=== PATIENT | male | born 1995 | race Caucasian/White ===

== ENCOUNTER 2016-10-21 09:17 | Inpatient (IN) | payer OTHER ==
[2016-10-21 10:02] VITALS: BMI 17.6
--- NOTE | 2016-10-21 13:54 | HP ---
Admission [facility] Chief Complaint: "I'm here because I want to get better and be clean and live a clean lifestyle. " Pt. is here for Rehab for Marijuana. Allergies/Adverse Reactions: Allergies Allergy/AdvReac Type Severity Reaction Status Date / Time hazelnut Allergy Itching Verified 10/21/16 11:02 History of Present Illness: Pt. is a 21 YO male here for Rehab for Marijuana use. Pt. has been to Detox at [facility] in 02/2016. Pt. is currently a client at [facility] OTP Methadone Program (80 mg daily, last dose taken: Today). Exam Limitations: No Limitations - Ebola screening Have you traveled outside of the country in the last 21 days: No Have you had contact with anyone from an Ebola affected area: No Have you been sick,other than usual withdrawal symptoms: No Do you have a fever: No - Review of Systems Constitutional: Chills, Diaphoresis, Fever, Loss of Appetite, Malaise, Night Sweats, Changes in sleep EENT: reports: Dental Problems (Couple of cracked fillings. Pt. reports that he is still okay to eat a regular diet.) Respiratory: reports: Productive cough Cardiac: reports: No Symptoms Reported GI: reports: Constipated : reports: No Symptoms Reported Musculoskeletal: reports: Back Pain (2 Herniated discs in lower back area.), Joint Stiffness (Right shoulder / upper back -intermittent, due to previous injury (12/2012).), Other (Occasional muscle spasms in ranom part of body. Last briefly when they do occur and then resolve on their own.) Integumentary: reports: No Symptoms Reported Neuro: reports: Numbness (Occasional in toes of left foot.), Tingling ( Occasional in toes of left foot.), Tremors Endocrine: reports: No Symptoms Reported Hematology: reports: No Symptoms Reported Psychiatric: reports: Judgement Intact, Mood/Affect Appropiate, Orientated x3, Anxious, Depressed (Takes medication.) Other Systems: Reviewed and Negative Patient History - Patient Medical History Hx Anemia: No Hx Asthma: Yes (ON ALBUTEROL INHALER) Hx Chronic Obstructive Pulmonary Disease (COPD): Yes (Bronchitis due to Mold infection, Treated, 2013.) Hx Cancer: No Hx Cardiac Disorders: No Hx Congestive Heart Failure: No Hx Hypertension: No Hx Hypercholesterolemia: No Hx Pacemaker: No HX Cerebrovascular Accident: No Hx Seizures: No Hx Dementia: No Hx Diabetes: No Hx Gastrointestinal Disorders: No Hx Liver Disease: No Hx Genitourinary Disorders: No Hx Sexually Transmitted Disorders: No Hx Renal Disease (ESRD): No Hx Thyroid Disease: No Hx Human Immunodeficiency Virus (HIV): No (Last tested: 2015: NEGATIVE.) Hx Hepatitis C: No (Last tested: 2015: NEGATIVE.) Hx Depression: Yes (On Meds.) Hx Suicide Attempt: Yes (2014. PATIENT DENIES CURRENT SI / HI.) Hx Bipolar Disorder: No Hx Schizophrenia: No Other Medical History: ADJUSTMENT DISORDER, ANXIETY. - Patient Surgical History Past Surgical History: No Hx Neurologic Surgery: No Hx Cataract Extraction: No Hx Cardiac Surgery: No Hx Lung Surgery: No Hx Breast Surgery: No Hx Breast Biopsy: No Hx Abdominal Surgery: No Hx Appendectomy: No Hx Cholecystectomy: No Hx Genitourinary Surgery: No Hx Section: No Hx Orthopedic Surgery: No Anesthesia Reaction: No - PPD History Previous Implant?: Yes Documented Results: Negative w/o proof Implanted On Prior [facility] Admission?: Yes Date: 02/18/16 PPD to be Administered?: Yes - Reproductive History Patient is a Female of Child Bearing Age (11 -55 yrs old): No (PATIENT IS MALE.) - Smoking Cessation Smoking history: Never smoked Have you smoked in the past 12 months: No Cigars Per Day: 0 Hx Chewing Tobacco Use: No Initiated information on smoking cessation: No - Substance & Tx. History Hx Alcohol Use: Yes Hx Substance Use: Yes Substance Use Type: Heroin, Marijuana, Opiates (Methadone Maintenance.) Hx Substance Use Treatment: Yes (Previous Detox admission at [facility].) - Substances Abused Marijuana/Hashish Route: Smoking Frequency: Daily Amount used: 0.25 - 0.5 Grams Age of first use: 11 Date of Last Use: 10/20/16 Heroin Route: Inhalation Frequency: 1-2 times per week Amount used: 2 Bags. Age of first use: 18 Date of Last Use: 10/20/16 Family Disease History - Family Disease History Family Disease History: CA: Grandparent (Stomach, .), Father (Thyroid.) , Respiratory: Grandparent Admission Physical Exam BHS - Vital Signs Vital Signs: Vital Signs - 24 hr 10/21/16 10:00 Temperature 98.5 F Pulse Rate 132 H Respiratory 20 Rate Blood Pressure 122/81 - Physical General Appearance: Yes: No Apparent Distress, Appropriately Dressed, Thin, Anxious HEENTM: Yes: Hearing grossly Normal, Normocephalic, Normal Voice, ANUP, Pharynx Normal Respiratory: Yes: Chest Non-Tender, No Respiratory Distress, Wheezing Neck: Yes: No masses,lesions,Nodules, Supple, Trachea in good position Breast: Yes: Breast Exam Deferred Cardiology: Yes: S1, S2, Irregular Abdominal: Yes: Normal Bowel Sounds, Non Tender, Flat, Soft Genitourinary: Yes: Within Normal Limits Back: Yes: Decreased Range of Motion, Vertebral Tenderness Musculoskeletal: Yes: Gait Steady, Back pain, Joint Stiffness Extremities: Yes: Tremors Neurological: Yes: Fully Oriented, Alert, Normal Mood/Affect, Normal Response Integumentary: Yes: Normal Color, Dry, Warm Lymphatic: Yes: Within Normal Limits - Diagnostic (1) Asthma Current Visit: Yes Status: Chronic Qualifiers: Asthma severity: mild intermittent Asthma complication type: uncomplicated Qualified Code(s): J45.20 - Mild intermittent asthma, uncomplicated (2) Cannabis dependence, uncomplicated Current Visit: Yes Status: Chronic (3) Methadone maintenance therapy patient Current Visit: Yes Status: Chronic (4) Opioid dependence on agonist therapy Current Visit: Yes Status: Chronic (5) Anxiety Current Visit: Yes Status: Chronic Cleared for Admission [facility] - Detox or Rehab Claeared for Rehab Admission: Yes [facility] Breath Alcohol Content Breath Alcohol Content: 0 Urine Drug Screen - Results Drug Screen Negative: No Urine Drug Screen Results: THC-Marijuana, THANG-Cocaine, BZO-Benzodiazepines, MTD- Methadone, TCA-Tricyclic Antidepress, OXY-Oxycodone
[2016-10-21] MEDS ORDERED: IBUPROFEN 400 MG TABLET (FP) PO PRN (14:27)
[2016-10-21] MEDS ORDERED: guaiFENesin/D-METHORPHAN HB 10 ML UNIT-DOSE CUPS PO PRN (14:27)
[2016-10-21] MEDS ORDERED: hydrOXYzine PAMOATE 50 MG CAPSULE (FP) PO PRN (14:27)
[2016-10-21] MEDS ORDERED: LOPERAMIDE HCL 2 MG CAPSULE PO PRN (14:27)
[2016-10-21] MEDS ORDERED: MAG HYDROX/AL HYDROX/SIMETH 30 ML UNIT-DOSE CUP PO PRN (14:27)
[2016-10-21] MEDS ORDERED: MAGNESIUM HYDROX 2400MG/30ML ORAL SUSPENSION 30 ML CUP PO PRN (14:27)
[2016-10-21] MEDS ORDERED: MENTHOL/PHENOL 1 EACH UD MM PRN (14:27)
[2016-10-21] MEDS ORDERED: diphenhydrAMINE HCL 50 MG CAPSULE PO PRN (14:27)
[2016-10-21] MEDS ORDERED: MAGNESIUM CITRATE 300 ML BOTTLE PO PRN (14:27)
[2016-10-21] MEDS ORDERED: P-EPHED 60MG/TRIPROLIDI 2.5MG TABLET PO PRN (14:27)
[2016-10-21] MEDS ORDERED: ALBUTEROL SO4 6.7 GM HFA INHALER IH PRN (14:30)
[2016-10-21 16:36] LABS: MCH 26.6 pg (25.7-33.7); MCHC 32.2 g/dl (32.0-35.9); MEAN CELL VOLUME 82.8 fl (80-96); MEAN PLT VOLUME 8.2 fl (7.5-11.1); PLATELET COUNT 434 K/MM3 (134-434); RDW 15.1 % (11.9-15.9); WHITE BLOOD COUNT 16.9 K/mm3 (4.0-10.0)
[2016-10-21 17:04] LABS: ALBUMIN 3.5 g/dl (3.4-5.0); ANION GAP 10 (8-16); BILIRUBIN,TOTAL 0.2 mg/dL (0.2-1.0); CALCIUM 9.7 mg/dL (8.5-10.1); CO2 28 mmol/L (21-32); CREATININE 0.7 mg/dL (0.7-1.3); GLUCOSE,RANDOM 101 mg/dL (74-106); SGOT/AST 12 U/L (15-37); SGPT/ALT 21 U/L (12-78); TOT PROT 8.4 g/dl (6.4-8.2)
[2016-10-21 17:05] LABS: ALK PHOS 109 U/L (45-117)
[2016-10-21 17:52] LABS: URINE APPEARANCE CLEAR; URINE BILIRUBIN NEGATIVE (NEGATIVE); URINE BLOOD NEGATIVE (NEGATIVE); URINE COLOR YELLOW; URINE GLUCOSE (UA) NEGATIVE (NEGATIVE); URINE KETONE NEGATIVE (NEGATIVE); URINE LEUK ESTERASE NEGATIVE (NEGATIVE); URINE NITRITE NEGATIVE (NEGATIVE); URINE PROTEIN NEGATIVE (NEGATIVE); URINE UROBILINOGEN NEGATIVE E.U./dl (0.2-1.0)
[2016-10-21] MEDS: CYCLOBENZAPRINE HCL 10 MG TABLET (FP) PO PRN (17:52)
[2016-10-21] MEDS: THIAMINE HCL 100 MG TABLET (FP) PO SCH (21:21)
[2016-10-21] MEDS ORDERED: ALBUTEROL SO4 2.5/IPRATROPIUM 0.5 INH SOL 3 ML VIAL.NEB. NEB PRN (22:55)
--- NOTE | 2016-10-21 22:59 | PN ---
[facility] Progress Note Note: received nurse call patient has asthma ventolin q4h prn duonab q6h prn wheezing upon admission begin symbicort bid continue rehab
[2016-10-21] MEDS: BUDESONIDE/FORMETEROL FUMARATE 80/4.5 mcg INHALER IH SCH (23:52)
[2016-10-22] MEDS: METHADONE HCL 40 MG DISPERSABLE TABLET PO SCH (07:06)
[2016-10-22] MEDS: PRENATAL VITAMINS W/ FOLIC ACID TABLET (FP) PO SCH (10:09)
[2016-10-22] MEDS: BUDESONIDE/FORMETEROL FUMARATE 80/4.5 mcg INHALER IH SCH ×2 (10:09→21:22)
[2016-10-22] MEDS: CYCLOBENZAPRINE HCL 10 MG TABLET (FP) PO PRN ×2 (10:11→21:23)
[2016-10-22] MEDS ORDERED: INFLUENZA VACCINE 45 MCG/0.5 ML (MDV 16-17) IM ONE (12:00)
--- NOTE | 2016-10-22 14:14 | HP ---
Psychiatrist Admission - Data Date of interview: 10/22/16 Admission source: [facility] Identifying data: This is the first 5N inpatient rehabilitation admission for this 21 year old single white male unmeployed, residing with his mother in [place]. Medical History: Patient reports work related back injury, asthma, on MMTP 90 mg/daily. Psychiatric History: Patient reports was seen by at [facility] to address anxiety and insomnia, he reports started Buspar but had a side-effects ( increased sweating) then Buspar changed to Trazodone 50 mg, reports he has been on meds 3 weeks and feels it's effective. Patient states anxiety runs in his family, (mother and grandmother with anxiety). Physical/Sexual Abuse/Trauma History: Denies history of abuse. Vital Signs: Vital Signs - 24 hr 10/22/16 10/22/16 10/22/16 00:35 03:30 06:57 Temperature 98.0 F Pulse Rate 83 Respiratory 18 18 16 Rate Blood Pressure 114/78 Allergies/Adverse Reactions: Allergies Allergy/AdvReac Type Severity Reaction Status Date / Time hazelnut Allergy Itching Verified 10/21/16 11:02 No Known Drug Allergies Allergy Verified 10/21/16 17:32 Date of last physical exam: 10/21/16 Concur with the findings of this exam: Yes - Substance Abuse/Tx History Hx Alcohol Use: No Hx Substance Use: Yes Substance Use Type: Heroin (10 g=bags in 2 s=days), Marijuana (2-3 times a week) Hx Substance Use Treatment: Yes ([facility]) - Admission Criteria Previous failed treatment: Yes Poor recovery environment: Yes Comorbidities: Yes Lacks judgement: Yes Mental Status Exam - Mental Status Exam Alert and Oriented to: Time, Place, Person Patient Appearance: Well Groomed Mood: Sad, Anxious Affect: Appropriate Patient Behavior: Appropriate, Cooperative Speech Pattern: Appropriate Voice Loudness: Normal Thought Process: Intact, Goal Oriented Thought Disorder: Not Present Hallucinations: Denies Suicidal Ideation: Denies Homicidal Ideation: Denies Insight/Judgement: Fair Sleep: Difficulty falling asleep Appetite: Fair Muscle strength/Tone: Normal Gait/Station: Normal Psychiatric Findings - Problem List ([place] 1, 2,3) (1) Asthma Current Visit: Yes Status: Chronic Qualifiers: Asthma severity: mild intermittent Asthma complication type: uncomplicated Qualified Code(s): J45.20 - Mild intermittent asthma, uncomplicated (2) Cannabis dependence, uncomplicated Current Visit: Yes Status: Chronic (3) Opioid dependence on agonist therapy Current Visit: Yes Status: Chronic (4) PEG (generalized anxiety disorder) Current Visit: Yes Status: Acute - Initial Treatment Plan Initial Treatment Plan: will continue Trazodone, patient made aware of Vistaril PRN for anxiety, will continue to monitor progress.
--- NOTE | 2016-10-22 15:19 | EKG ---
Test Reason : Blood Pressure : / mmHG Vent. Rate : 085 BPM Atrial Rate : 085 BPM P-R Int : 118 ms QRS Dur : 084 ms QT Int : 372 ms P-R-T Axes : 040 055 059 degrees QTc Int : 442 ms SINUS RHYTHM WITH MARKED SINUS ARRHYTHMIA NO PREVIOUS ECGS AVAILABLE Confirmed by ANTONIA MARTINEZ MD ([id number]) on 10/22/2016 3:18:49 PM Referred By: Elo Batista Confirmed By:ANTONIA MARTINEZ MD
[2016-10-22] MEDS: hydrOXYzine PAMOATE 50 MG CAPSULE (FP) PO PRN (16:49)
[2016-10-22] MEDS: THIAMINE HCL 100 MG TABLET (FP) PO SCH (21:23)
[2016-10-22] MEDS: traZODone HCL 50 MG TABLET (FP) PO SCH (21:23)
[2016-10-23] MEDS: METHADONE HCL 40 MG DISPERSABLE TABLET PO SCH (06:33)
[2016-10-23] MEDS: BUDESONIDE/FORMETEROL FUMARATE 80/4.5 mcg INHALER IH SCH ×2 (10:25→21:24)
[2016-10-23] MEDS: PRENATAL VITAMINS W/ FOLIC ACID TABLET (FP) PO SCH (10:25)
[2016-10-23] MEDS: hydrOXYzine PAMOATE 50 MG CAPSULE (FP) PO PRN (10:26)
[2016-10-23] MEDS: CYCLOBENZAPRINE HCL 10 MG TABLET (FP) PO PRN ×2 (10:27→21:25)
[2016-10-23] MEDS: ACETAMINOPHEN 325 MG TABLET (FP) PO PRN (15:55)
[2016-10-23] MEDS: ALBUTEROL SO4 6.7 GM HFA INHALER IH PRN (17:55)
[2016-10-23] MEDS: THIAMINE HCL 100 MG TABLET (FP) PO SCH (21:24)
[2016-10-23] MEDS: traZODone HCL 50 MG TABLET (FP) PO SCH (21:24)
[2016-10-24] MEDS: METHADONE HCL 40 MG DISPERSABLE TABLET PO SCH (06:12)
[2016-10-24] MEDS: PRENATAL VITAMINS W/ FOLIC ACID TABLET (FP) PO SCH (10:17)
[2016-10-24] MEDS: BUDESONIDE/FORMETEROL FUMARATE 80/4.5 mcg INHALER IH SCH ×2 (10:18→21:30)
[2016-10-24] MEDS: CYCLOBENZAPRINE HCL 10 MG TABLET (FP) PO PRN ×2 (10:19→21:30)
[2016-10-24] MEDS: hydrOXYzine PAMOATE 50 MG CAPSULE (FP) PO PRN (10:19)
[2016-10-24] MEDS: traZODone HCL 50 MG TABLET (FP) PO SCH (21:30)
[2016-10-24] MEDS: THIAMINE HCL 100 MG TABLET (FP) PO SCH (21:30)
[2016-10-25] MEDS: METHADONE HCL 40 MG DISPERSABLE TABLET PO SCH (06:11)
[2016-10-25] MEDS: BUDESONIDE/FORMETEROL FUMARATE 80/4.5 mcg INHALER IH SCH ×2 (10:18→21:19)
[2016-10-25] MEDS: PRENATAL VITAMINS W/ FOLIC ACID TABLET (FP) PO SCH (10:18)
[2016-10-25] MEDS: CYCLOBENZAPRINE HCL 10 MG TABLET (FP) PO PRN ×2 (10:19→21:17)
[2016-10-25] MEDS: hydrOXYzine PAMOATE 50 MG CAPSULE (FP) PO PRN ×2 (10:19→14:23)
[2016-10-25] MEDS: THIAMINE HCL 100 MG TABLET (FP) PO SCH (21:17)
[2016-10-25] MEDS: traZODone HCL 50 MG TABLET (FP) PO SCH (21:17)
[2016-10-26] MEDS: METHADONE HCL 40 MG DISPERSABLE TABLET PO SCH (06:02)
[2016-10-26] MEDS: PRENATAL VITAMINS W/ FOLIC ACID TABLET (FP) PO SCH (10:07)
[2016-10-26] MEDS: BUDESONIDE/FORMETEROL FUMARATE 80/4.5 mcg INHALER IH SCH ×2 (10:07→21:25)
[2016-10-26] MEDS: hydrOXYzine PAMOATE 50 MG CAPSULE (FP) PO PRN ×2 (10:09→14:27)
[2016-10-26] MEDS: CYCLOBENZAPRINE HCL 10 MG TABLET (FP) PO PRN ×2 (10:09→21:25)
[2016-10-26] MEDS: THIAMINE HCL 100 MG TABLET (FP) PO SCH (21:24)
[2016-10-26] MEDS: traZODone HCL 50 MG TABLET (FP) PO SCH (21:24)
[2016-10-27] MEDS: METHADONE HCL 40 MG DISPERSABLE TABLET PO SCH (06:24)
[2016-10-27] MEDS: hydrOXYzine PAMOATE 50 MG CAPSULE (FP) PO PRN ×2 (09:22→14:14)
[2016-10-27] MEDS: BUDESONIDE/FORMETEROL FUMARATE 80/4.5 mcg INHALER IH SCH ×2 (09:22→21:28)
[2016-10-27] MEDS: PRENATAL VITAMINS W/ FOLIC ACID TABLET (FP) PO SCH (09:22)
[2016-10-27] MEDS: CYCLOBENZAPRINE HCL 10 MG TABLET (FP) PO PRN ×2 (14:14→21:27)
[2016-10-27 14:29] LABS: BASOPHIL 0.9 % (0-2.0); EOSINOPHIL 11.5 % (0-4.5); MCH 26.3 pg (25.7-33.7); MCHC 31.4 g/dl (32.0-35.9); MEAN CELL VOLUME 83.8 fl (80-96); MEAN PLT VOLUME 8.3 fl (7.5-11.1); NEUTROPHILS 60.4 % (42.8-82.8); PLATELET COUNT 322 K/MM3 (134-434); RDW 15.2 % (11.9-15.9); WHITE BLOOD COUNT 11.6 K/mm3 (4.0-10.0)
[2016-10-27] MEDS: ALBUTEROL SO4 6.7 GM HFA INHALER IH PRN (20:13)
[2016-10-27] MEDS: THIAMINE HCL 100 MG TABLET (FP) PO SCH (21:27)
[2016-10-27] MEDS: traZODone HCL 50 MG TABLET (FP) PO SCH (21:27)
[2016-10-28] MEDS: METHADONE HCL 40 MG DISPERSABLE TABLET PO SCH (06:07)
[2016-10-28] MEDS: PRENATAL VITAMINS W/ FOLIC ACID TABLET (FP) PO SCH (10:12)
[2016-10-28] MEDS: BUDESONIDE/FORMETEROL FUMARATE 80/4.5 mcg INHALER IH SCH ×2 (10:12→21:29)
[2016-10-28] MEDS: CYCLOBENZAPRINE HCL 10 MG TABLET (FP) PO PRN ×2 (10:13→21:29)
[2016-10-28] MEDS: hydrOXYzine PAMOATE 50 MG CAPSULE (FP) PO PRN ×2 (10:13→19:06)
[2016-10-28] MEDS: THIAMINE HCL 100 MG TABLET (FP) PO SCH (21:29)
[2016-10-28] MEDS: traZODone HCL 50 MG TABLET (FP) PO SCH (21:29)
[2016-10-29] MEDS: METHADONE HCL 40 MG DISPERSABLE TABLET PO SCH (06:14)
[2016-10-29] MEDS: CYCLOBENZAPRINE HCL 10 MG TABLET (FP) PO PRN ×3 (06:20→21:48)
[2016-10-29] MEDS: hydrOXYzine PAMOATE 50 MG CAPSULE (FP) PO PRN ×3 (06:21→14:12)
[2016-10-29] MEDS: BUDESONIDE/FORMETEROL FUMARATE 80/4.5 mcg INHALER IH SCH ×2 (10:30→21:49)
[2016-10-29] MEDS: PRENATAL VITAMINS W/ FOLIC ACID TABLET (FP) PO SCH (10:30)
[2016-10-29] MEDS: THIAMINE HCL 100 MG TABLET (FP) PO SCH (21:48)
[2016-10-29] MEDS: traZODone HCL 50 MG TABLET (FP) PO SCH (21:48)
[2016-10-30] MEDS: hydrOXYzine PAMOATE 50 MG CAPSULE (FP) PO PRN ×2 (06:07→10:28)
[2016-10-30] MEDS: METHADONE HCL 40 MG DISPERSABLE TABLET PO SCH (06:23)
[2016-10-30] MEDS: PRENATAL VITAMINS W/ FOLIC ACID TABLET (FP) PO SCH (10:28)
[2016-10-30] MEDS: BUDESONIDE/FORMETEROL FUMARATE 80/4.5 mcg INHALER IH SCH ×2 (10:28→21:56)
[2016-10-30] MEDS: THIAMINE HCL 100 MG TABLET (FP) PO SCH (21:55)
[2016-10-30] MEDS: CYCLOBENZAPRINE HCL 10 MG TABLET (FP) PO PRN (21:55)
[2016-10-30] MEDS: traZODone HCL 50 MG TABLET (FP) PO SCH (21:55)
[2016-10-31] MEDS: METHADONE HCL 40 MG DISPERSABLE TABLET PO SCH (06:04)
[2016-10-31] MEDS: hydrOXYzine PAMOATE 50 MG CAPSULE (FP) PO PRN ×2 (10:21→21:06)
[2016-10-31] MEDS: PRENATAL VITAMINS W/ FOLIC ACID TABLET (FP) PO SCH (10:21)
[2016-10-31] MEDS: BUDESONIDE/FORMETEROL FUMARATE 80/4.5 mcg INHALER IH SCH ×2 (10:21→21:06)
[2016-10-31] MEDS: traZODone HCL 50 MG TABLET (FP) PO SCH (21:06)
[2016-10-31] MEDS: THIAMINE HCL 100 MG TABLET (FP) PO SCH (21:06)
[2016-10-31] MEDS: CYCLOBENZAPRINE HCL 10 MG TABLET (FP) PO PRN (21:06)
[2016-11-01] MEDS: METHADONE HCL 40 MG DISPERSABLE TABLET PO SCH (06:15)
[2016-11-01] MEDS: hydrOXYzine PAMOATE 50 MG CAPSULE (FP) PO PRN ×4 (06:16→21:43)
[2016-11-01] MEDS: BUDESONIDE/FORMETEROL FUMARATE 80/4.5 mcg INHALER IH SCH ×2 (09:47→21:43)
[2016-11-01] MEDS: PRENATAL VITAMINS W/ FOLIC ACID TABLET (FP) PO SCH (09:47)
[2016-11-01] MEDS: CYCLOBENZAPRINE HCL 10 MG TABLET (FP) PO PRN (21:43)
[2016-11-01] MEDS: THIAMINE HCL 100 MG TABLET (FP) PO SCH (21:43)
[2016-11-01] MEDS: traZODone HCL 50 MG TABLET (FP) PO SCH (21:43)
[2016-11-02] MEDS: METHADONE HCL 40 MG DISPERSABLE TABLET PO SCH (06:16)
[2016-11-02] MEDS: hydrOXYzine PAMOATE 50 MG CAPSULE (FP) PO PRN ×4 (06:17→21:08)
[2016-11-02] MEDS: BUDESONIDE/FORMETEROL FUMARATE 80/4.5 mcg INHALER IH SCH ×2 (09:46→21:08)
[2016-11-02] MEDS: PRENATAL VITAMINS W/ FOLIC ACID TABLET (FP) PO SCH (09:46)
[2016-11-02] MEDS: CYCLOBENZAPRINE HCL 10 MG TABLET (FP) PO PRN ×2 (09:49→21:08)
[2016-11-02] MEDS: THIAMINE HCL 100 MG TABLET (FP) PO SCH (21:08)
[2016-11-02] MEDS: traZODone HCL 50 MG TABLET (FP) PO SCH (21:08)
[2016-11-03] MEDS: hydrOXYzine PAMOATE 50 MG CAPSULE (FP) PO PRN ×4 (06:09→21:23)
[2016-11-03] MEDS: METHADONE HCL 40 MG DISPERSABLE TABLET PO SCH (06:09)
[2016-11-03] MEDS: PRENATAL VITAMINS W/ FOLIC ACID TABLET (FP) PO SCH (09:44)
[2016-11-03] MEDS: BUDESONIDE/FORMETEROL FUMARATE 80/4.5 mcg INHALER IH SCH ×2 (09:44→21:24)
[2016-11-03] MEDS: CYCLOBENZAPRINE HCL 10 MG TABLET (FP) PO PRN ×2 (09:45→21:23)
[2016-11-03] MEDS: traZODone HCL 50 MG TABLET (FP) PO SCH (21:23)
[2016-11-03] MEDS: THIAMINE HCL 100 MG TABLET (FP) PO SCH (21:23)
[2016-11-04] MEDS: METHADONE HCL 40 MG DISPERSABLE TABLET PO SCH (06:10)
[2016-11-04] MEDS: hydrOXYzine PAMOATE 50 MG CAPSULE (FP) PO PRN ×4 (06:10→21:24)
[2016-11-04] MEDS: PRENATAL VITAMINS W/ FOLIC ACID TABLET (FP) PO SCH (10:21)
[2016-11-04] MEDS: BUDESONIDE/FORMETEROL FUMARATE 80/4.5 mcg INHALER IH SCH ×2 (10:21→21:24)
[2016-11-04] MEDS: CYCLOBENZAPRINE HCL 10 MG TABLET (FP) PO PRN ×2 (14:33→21:22)
[2016-11-04] MEDS: THIAMINE HCL 100 MG TABLET (FP) PO SCH (21:22)
[2016-11-04] MEDS: traZODone HCL 50 MG TABLET (FP) PO SCH (21:22)
[2016-11-05] MEDS: hydrOXYzine PAMOATE 50 MG CAPSULE (FP) PO PRN ×3 (06:13→21:24)
[2016-11-05] MEDS: METHADONE HCL 40 MG DISPERSABLE TABLET PO SCH (06:13)
[2016-11-05] MEDS: BUDESONIDE/FORMETEROL FUMARATE 80/4.5 mcg INHALER IH SCH ×2 (09:55→21:25)
[2016-11-05] MEDS: PRENATAL VITAMINS W/ FOLIC ACID TABLET (FP) PO SCH (09:55)
[2016-11-05] MEDS: CYCLOBENZAPRINE HCL 10 MG TABLET (FP) PO PRN ×2 (14:43→21:25)
[2016-11-05] MEDS: THIAMINE HCL 100 MG TABLET (FP) PO SCH (21:25)
[2016-11-05] MEDS: traZODone HCL 50 MG TABLET (FP) PO SCH (21:25)
[2016-11-06] MEDS: METHADONE HCL 40 MG DISPERSABLE TABLET PO SCH (06:40)
[2016-11-06] MEDS: hydrOXYzine PAMOATE 50 MG CAPSULE (FP) PO PRN ×2 (06:41→21:26)
[2016-11-06] MEDS: BUDESONIDE/FORMETEROL FUMARATE 80/4.5 mcg INHALER IH SCH ×2 (10:26→21:27)
[2016-11-06] MEDS: CYCLOBENZAPRINE HCL 10 MG TABLET (FP) PO PRN ×2 (10:26→21:26)
[2016-11-06] MEDS: PRENATAL VITAMINS W/ FOLIC ACID TABLET (FP) PO SCH (10:26)
[2016-11-06] MEDS: THIAMINE HCL 100 MG TABLET (FP) PO SCH (21:26)
[2016-11-06] MEDS: traZODone HCL 50 MG TABLET (FP) PO SCH (21:26)
[2016-11-07] MEDS: METHADONE HCL 40 MG DISPERSABLE TABLET PO SCH (06:29)
[2016-11-07] MEDS: hydrOXYzine PAMOATE 50 MG CAPSULE (FP) PO PRN ×2 (06:31→21:09)
[2016-11-07] MEDS: CYCLOBENZAPRINE HCL 10 MG TABLET (FP) PO PRN ×2 (10:14→21:09)
[2016-11-07] MEDS: BUDESONIDE/FORMETEROL FUMARATE 80/4.5 mcg INHALER IH SCH ×2 (10:15→21:09)
[2016-11-07] MEDS: PRENATAL VITAMINS W/ FOLIC ACID TABLET (FP) PO SCH (10:15)
[2016-11-07] MEDS: traZODone HCL 50 MG TABLET (FP) PO SCH (21:08)
[2016-11-07] MEDS: THIAMINE HCL 100 MG TABLET (FP) PO SCH (21:08)
[2016-11-08] MEDS: METHADONE HCL 40 MG DISPERSABLE TABLET PO SCH (06:31)
[2016-11-08] MEDS: PRENATAL VITAMINS W/ FOLIC ACID TABLET (FP) PO SCH (10:08)
[2016-11-08] MEDS: BUDESONIDE/FORMETEROL FUMARATE 80/4.5 mcg INHALER IH SCH ×2 (10:09→21:38)
[2016-11-08] MEDS: CYCLOBENZAPRINE HCL 10 MG TABLET (FP) PO PRN ×2 (10:10→21:37)
[2016-11-08] MEDS: hydrOXYzine PAMOATE 50 MG CAPSULE (FP) PO PRN ×2 (14:16→21:37)
[2016-11-08] MEDS: THIAMINE HCL 100 MG TABLET (FP) PO SCH (21:37)
[2016-11-08] MEDS: traZODone HCL 50 MG TABLET (FP) PO SCH (21:37)
[2016-11-09] MEDS: METHADONE HCL 40 MG DISPERSABLE TABLET PO SCH (06:11)
[2016-11-09] MEDS: ACETAMINOPHEN 325 MG TABLET (FP) PO PRN (06:13)
[2016-11-09] MEDS: PRENATAL VITAMINS W/ FOLIC ACID TABLET (FP) PO SCH (10:17)
[2016-11-09] MEDS: CYCLOBENZAPRINE HCL 10 MG TABLET (FP) PO PRN ×2 (10:17→21:17)
[2016-11-09] MEDS: BUDESONIDE/FORMETEROL FUMARATE 80/4.5 mcg INHALER IH SCH ×2 (10:17→21:17)
[2016-11-09] MEDS: hydrOXYzine PAMOATE 50 MG CAPSULE (FP) PO PRN ×2 (10:17→21:17)
[2016-11-09] MEDS: traZODone HCL 50 MG TABLET (FP) PO SCH (21:16)
[2016-11-09] MEDS: THIAMINE HCL 100 MG TABLET (FP) PO SCH (21:16)
[2016-11-10] MEDS: METHADONE HCL 40 MG DISPERSABLE TABLET PO SCH (06:18)
[2016-11-10] MEDS: hydrOXYzine PAMOATE 50 MG CAPSULE (FP) PO PRN ×4 (06:18→21:22)
[2016-11-10] MEDS: BUDESONIDE/FORMETEROL FUMARATE 80/4.5 mcg INHALER IH SCH ×2 (09:48→21:22)
[2016-11-10] MEDS: PRENATAL VITAMINS W/ FOLIC ACID TABLET (FP) PO SCH (09:48)
[2016-11-10] MEDS: CYCLOBENZAPRINE HCL 10 MG TABLET (FP) PO PRN ×2 (09:48→21:22)
[2016-11-10] MEDS: traZODone HCL 50 MG TABLET (FP) PO SCH (21:22)
[2016-11-10] MEDS: THIAMINE HCL 100 MG TABLET (FP) PO SCH (21:22)
[2016-11-11] MEDS: METHADONE HCL 40 MG DISPERSABLE TABLET PO SCH (06:11)
[2016-11-11] MEDS: hydrOXYzine PAMOATE 50 MG CAPSULE (FP) PO PRN ×2 (06:12→10:05)
[2016-11-11 06:58] VITALS: BP 112/74; PULSE 97; TEMP 98
[2016-11-11] MEDS: PRENATAL VITAMINS W/ FOLIC ACID TABLET (FP) PO SCH (10:02)
[2016-11-11] MEDS: BUDESONIDE/FORMETEROL FUMARATE 80/4.5 mcg INHALER IH SCH (10:02)
[2016-11-11] MEDS: CYCLOBENZAPRINE HCL 10 MG TABLET (FP) PO PRN (10:03)
--- NOTE | 2016-11-11 10:56 | PN ---
Psychiatric Progress Note Vital Signs: Vital Signs Period Temp Pulse Resp BP Sys/Wilson Pulse Ox Last 24 Hr 98.0 F 97 18-18 112/74 Date of Session: 11/11/16 Chief Complaint:: discharge visit HPI: Patient has addressed opioid, cannabis dependence comorbid PEG. ROS: WNL Current Medications: Active Medications Generic Name Dose Route Start Last Admin Trade Name Freq PRN Reason Stop Dose Admin Acetaminophen 650 mg 10/21/16 14:27 11/09/16 06:13 Tylenol - PO 650 mg Q4H PRN Administration PAIN Al Hydroxide/Mg Hydroxide 30 ml 10/21/16 14:27 Mylanta Oral Suspension - PO Q6H PRN DYSPEPSIA Albuterol Sulfate 2 puff 10/21/16 22:56 10/27/16 20:13 Ventolin Hfa Inhaler - IH 2 puff Q4H PRN Administration ASTHMA Budesonide/Formoterol Fumarate 2 puff 10/21/16 23:00 11/11/16 10:02 Symbicort 80/4.5mcg - IH 2 puff BID ADRIAN Administration Cyclobenzaprine HCl 10 mg 10/21/16 14:35 11/11/16 10:03 Flexeril - PO 10 mg TID PRN Administration MUSCLE SPASMS Diphenhydramine HCl 50 mg 10/21/16 14:27 Benadryl - PO HSMR1 PRN INSOMNIA Eucalyptus/Menthol/Phenol/Sorbitol 1 each 10/21/16 14:27 10/29/16 10:32 Cepastat Lozenge - MM 1 each Q4H PRN Administration SORE THROAT Guaifenesin 10 ml 10/21/16 14:27 Robitussin Dm - PO Q6H PRN COUGH Hydroxyzine Pamoate 50 mg 10/22/16 14:09 11/11/16 10:05 Vistaril - PO 50 mg Q4H PRN Administration ANXIETY Ibuprofen 400 mg 10/21/16 14:27 Motrin - PO Q6H PRN SEVERE PAIN Loperamide HCl 4 mg 10/21/16 14:27 Imodium - PO Q6H PRN DIARRHEA Magnesium Citrate 300 ml 10/21/16 14:27 Citroma - PO Q48H PRN CONSTIPATION Magnesium Hydroxide 30 ml 10/21/16 14:27 Milk Of Magnesia - PO DAILY PRN CONSTIPATION Methadone HCl 80 mg 11/07/16 06:00 11/11/16 06:11 Dolophine - PO 80 mg DAILY@0600 ADRIAN Administration Multivit/Folic Acid/Iron 1 tab 10/22/16 10:00 11/11/16 10:02 Vitamins ([facility]) - PO 1 tab DAILY ADRIAN Administration Pseudoephedrine/Triprolidine 1 combo 10/21/16 14:27 11/03/16 14:21 Actifed - PO 1 combo TID PRN Administration NASAL CONGESTION Thiamine HCl 100 mg 10/21/16 22:00 11/10/16 21:22 Vitamin B1 - PO 100 mg HS ADRIAN Administration Trazodone HCl 50 mg 10/22/16 22:00 11/10/16 21:22 Desyrel - PO 50 mg HS ADRIAN Administration Current Side Effect: No Lab tests ordered: No Lab tests reviewed: Yes Provider note:: Patient has completed treatment today and met his goals, he will continue to address his issues at [facility] outpatient treatment program, he focused on importance of changing attitudes for the utilization of supports to prevent relapses, he understands the negative impact of his addiction on his lfe and verbalized resolution to continue maitain abstiennce. PAtient continues finding Trazodone and Vistaril effective in anxiety reduction and moood stabilization, scripts provided, patient is stable for discharge. Total face to face time:: 35 Mental Status Exam - Mental Status Exam Alert and Oriented to: Time, Place, Person Cognitive Function: Good Patient Appearance: Well Groomed Mood: Hopeful Affect: Appropriate, Mood Congruent Patient Behavior: Appropriate, Cooperative Speech Pattern: Clear, Appropriate Voice Loudness: Normal Thought Process: Intact, Goal Oriented Thought Disorder: Not Present Hallucinations: Denies Suicidal Ideation: Denies Homicidal Ideation: Denies Insight/Judgement: Fair Sleep: Well Appetite: Good Muscle strength/Tone: Normal Gait/Station: Normal Psychiatric Treatment Plan - Problem List (1) Asthma Current Visit: Yes Qualifiers: Asthma severity: mild intermittent Asthma complication type: uncomplicated Qualified Code(s): J45.20 - Mild intermittent asthma, uncomplicated (2) Cannabis dependence, uncomplicated Current Visit: Yes (3) Opioid dependence on agonist therapy Current Visit: Yes (4) PEG (generalized anxiety disorder) Current Visit: Yes
== END 2016-11-11 13:10 | disposition home or self-care (01) | DRG 745 ==
LOC: YASAS 09:17 → Y5N 14:50
PROVIDERS: ADMIT Psychiatry & Neurology Psychiatry; ATTEND Psychiatry & Neurology Psychiatry
PROC: HZ42ZZZ Group Counseling for Substance Abuse Treatment, Cognitive-Behavioral (ICD-10-PCS; principal; 2016-10-21)
DX: F12.20 Cannabis dependence, uncomplicated (principal); F11.20 Opioid dependence, uncomplicated; F41.1 Generalized anxiety disorder; J45.20 Mild intermittent asthma, uncomplicated; Z91.5 Personal history of self-harm
CPT/HCPCS: 36415; 80053; 81003; 85025; 85027; 86593; 93005; 93010